=== PATIENT | male | born 1950 | race Caucasian/White ===

== ENCOUNTER 2018-04-18 12:11 | Inpatient (IN) | payer BC, MEDICARE ==
[~2018-04-18] VITALS: Ht 177.8 cm; Wt 112.0 kg
--- NOTE | ~2018-04-18 | PROC ---
[address] [address] PROCEDURE REPORT Name: STANTON GUERRA Room: [address] IN ..#: [id number] Admission: 04/18/18 Attend Phys: Jennifer Duffy MD Discharge: 04/20/18 Date of : 52 Report #: [id number] THIS REPORT FOR: //name// For GI report, please see the Provation report in Perceptive 7 content. By: [id number] Records Staff JOHANNY /STARR
[2018-04-18 12:21] VITALS: BP 129/42
[2018-04-18] MEDS ORDERED: ACTOS 45 MG45 M1 PO (12:28)
[2018-04-18] MEDS ORDERED: METFORMIN HCL500 MG PO (12:28)
[2018-04-18] MEDS ORDERED: LISINOPRIL20 MG PO (12:28)
[2018-04-18 12:58] LABS: ABSOLUTE BASOPHILS 0.1 thou/uL (0.0-0.2); ABSOLUTE EOSINOPHILS 0.2 thou/uL (0.0-0.7); ABSOLUTE LYMPHOCYTES 4.9 thou/uL (0.8-5.3); ABSOLUTE MONOCYTES 1.5 thou/uL (0.0-1.2); ABSOLUTE NEUTROPHILS 12.9 thou/uL (1.6-8.1); BASOPHILS 0.7 %; EOSINOPHILS 1.1 %; HEMATOCRIT 40.5 % (42.0-52.0); LYMPHOCYTES 24.8 %; MCH 29.5 pg (26.0-34.0); MCHC 32.2 g/dL (28.0-37.0); MCV 91.5 fL (80.0-100.0); MONOCYTES 7.7 %; MPV 9.3 fl. (7.2-11.1); NUCLEATED RBCS 0 /100WBC; PLATELET COUNT* 274 thou/uL (150-400); POLYS 65.7 %; RBC 4.42 mil/uL (4.50-6.00); RDW-CV 14.1 % (10.5-14.5); WBC 19.6 thou/uL (4.0-11.0)
[2018-04-18 13:04] LABS: ANION GAP 11 mmol/L (7-16); BUN 36 mg/dL (7-18); CALCIUM 9.5 mg/dL (8.5-10.1); CHLORIDE 103 mmol/L (98-107); CO2 28 mmol/L (21-32); CREATININE 1.1 mg/dL (0.6-1.3); GLUCOSE 202 mg/dL (70-99); POTASSIUM 4.2 mmol/L (3.5-5.1); PROTIME 10.1 Seconds (9.20-11.50); SODIUM 142 mmol/L (136-145)
[2018-04-18 13:15] LABS: ALBUMIN 3.4 g/dL (3.4-5.0); ALKALINE PHOSPHATASE 44 U/L (46-116); LIPASE 206 U/L (73-393); NT-PRO BRAIN NAT PEPTIDE 56 pg/mL (<300); SGOT 25 U/L (15-37); SGPT 28 U/L (30-65); TOTAL BILIRUBIN 0.8 mg/dL (<0.1-1.0); TOTAL PROTEIN 6.9 g/dL (6.4-8.2); TROPONIN-I LEVEL <0.06 ng/mL (<0.06)
--- NOTE | 2018-04-18 14:50 | EKG ---
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 : 1950 Requested By: Alex Rojas Order Number: [id number] MD: Jose Fernandez Measurements Intervals [place] Rate: 92 P: 58 AK: 160 QRS: 84 QRSD: 84 T: 43 QT: 339 QTc: 420 Interpretive Statements Sinus rhythm Borderline right axis deviation Low voltage, precordial leads Nonspecific T abnormalities, anterior leads No previous ECG available for comparison Electronically Signed On 04-18-2018 14:50:04 CDT by Jose Fernandez [email or web address] <ELECTRONICALLY SIGNED> By: Jose Fernandez MD, [facility] 04/18/18 1450 1321 1321 Jose Fernandez MD, [facility] /EPI
[2018-04-18 15:57] LABS: HEMATOCRIT 38.3 % (42.0-52.0); HEMOGLOBIN 12.6 gm/dL (14.0-18.0); MCH 29.8 pg (26.0-34.0); MCHC 32.8 g/dL (28.0-37.0); MCV 90.8 fL (80.0-100.0); MPV 8.6 fl. (7.2-11.1); RBC 4.22 mil/uL (4.50-6.00); RDW-CV 14.4 % (10.5-14.5); WBC 17.6 thou/uL (4.0-11.0)
[2018-04-18 17:02] VITALS: BP 130/64
[2018-04-18 17:03] VITALS: BP 138/68
[2018-04-18] MEDS ORDERED: VITAMIN D2000 UNIT PO (17:22)
[2018-04-18] MEDS ORDERED: NEPHROCAPS SOFT1 CAP PO (17:22)
[2018-04-18] MEDS ORDERED: LUTEIN20 MG PO (17:23)
[2018-04-18] MEDS ORDERED: XALATAN2.5 ML OPHTHALMIC (17:24)
[2018-04-18 19:30] LABS: HEMOGLOBIN 12.1 gm/dL (14.0-18.0)
[2018-04-18 20:00] VITALS: BP 128/68
[2018-04-19] VITALS: BP 123/62
[2018-04-19 04:00] VITALS: BP 123/66
[2018-04-19 04:40] LABS: HEMATOCRIT 31.7 % (42.0-52.0); HEMOGLOBIN 10.5 gm/dL (14.0-18.0); MCH 30.3 pg (26.0-34.0); MCHC 33.3 g/dL (28.0-37.0); MPV 9.6 fl. (7.2-11.1); RBC 3.48 mil/uL (4.50-6.00); RDW-CV 14.3 % (10.5-14.5); WBC 13.1 thou/uL (4.0-11.0)
[2018-04-19 05:01] LABS: CALCIUM 9.4 mg/dL (8.5-10.1); MAGNESIUM 1.5 mg/dL (1.8-2.4); POTASSIUM 4.2 mmol/L (3.5-5.1); TOTAL BILIRUBIN 0.7 mg/dL (<0.1-1.0); TOTAL PROTEIN 5.5 g/dL (6.4-8.2)
--- NOTE | 2018-04-19 05:26 | NUR ---
ASSUMED CARE OF PATIENT AT [address]-SR ON THE MONITOR O2 SAT MAINTAINED ON RA CONTINUES TO BE UP ADLIB THE ROUTINE REGIMEN CONTINUES TO BE EFFECTIVE FOR SX MANAGEMENT PATIENT CONTINUE TO PROGRESS TOWARDS GOALS AT MIDNIGHT NPO DUE ORDERED HS SSI HELD DUE TO NPO STATUS FLUIDS CONTINUE TO INFUSE WITHOUT S/SX OF ADVERSE EFFECTS NOTED SAFETY INTERVENTIONS CONTINUES BED LOWERED WHEELS LOCKED CALL LIGHT IN REACH SIDE RAILS UP REPORT TO BE GIVEN TO ONCOMING RN
--- NOTE | 2018-04-19 08:38 | NUR ---
PT SITTING UP IN CHAIR IN ROOM, APPEARS ALERT O X 4, DENIES CHEST PAIN, SOB, PAIN OR DISCOMORT. PT HAS BEEM MPO SINCE MIDNIGHT. DENIES ANY EMESIS,OR SPITTING UP BLOOD, SR ON MONITOR. PT INDICATED HE DRINKS NEAR A 1/2 BOTTLE OF WHISKEY A DAY. DR AUGUST CALLED, PLAN ON EGD THIS AM
[2018-04-19 08:41] VITALS: BP 123/66
[2018-04-19 12:00] VITALS: BP 128/59
[2018-04-19 16:00] VITALS: BP 108/61
[2018-04-19 18:26] LABS: HEMATOCRIT 31.3 % (42.0-52.0); HEMOGLOBIN 10.5 gm/dL (14.0-18.0)
[2018-04-19 18:35] LABS: POTASSIUM 3.5 mmol/L (3.5-5.1)
--- NOTE | 2018-04-19 19:30 | NUR ---
Called answering sercive for DR Landon to report 1800 H&H. lm request call back
[2018-04-19 19:38] VITALS: BP 109/42
[2018-04-20] VITALS (9 sets, daily range): BP systolic 106–124; BP diastolic 35–69
--- NOTE | 2018-04-20 05:04 | NUR ---
PT AAOX4 RESP REG AND UNLABORED SKIN W/D NO ACUTE DISTRESS NOTED. PT HAS WALKED IN KITCHEN NUMEROUS TIMES THIS SHIFT AND TOLERATED WELL. PT DENIES PAIN OR COUGHING UP BLOOD. PT STATES HE IS HOPING TO BE DCD TODAY. TELEMETRY PACK INTACT WITH [employer] SET. VSS AND NO ACUTE CHANGES DURING SHIFT WILL CONTINUE TO MONITOR
[2018-04-20 05:10] LABS: ABSOLUTE BASOPHILS 0.1 thou/uL (0.0-0.2); ABSOLUTE EOSINOPHILS 0.3 thou/uL (0.0-0.7); ABSOLUTE LYMPHOCYTES 2.7 thou/uL (0.8-5.3); ABSOLUTE NEUTROPHILS 6.4 thou/uL (1.6-8.1); BASOPHILS 0.7 %; HEMATOCRIT 28.5 % (42.0-52.0); HEMOGLOBIN 9.6 gm/dL (14.0-18.0); LYMPHOCYTES 25.5 %; MCH 30.7 pg (26.0-34.0); MCHC 33.6 g/dL (28.0-37.0); MCV 91.4 fL (80.0-100.0); MONOCYTES 9.3 %; MPV 8.7 fl. (7.2-11.1); NUCLEATED RBCS 0 /100WBC; PLATELET COUNT* 201 thou/uL (150-400); POLYS 61.5 %; RBC 3.12 mil/uL (4.50-6.00); RDW-CV 14.3 % (10.5-14.5); WBC 10.5 thou/uL (4.0-11.0)
[2018-04-20 05:24] LABS: CALCIUM 8.5 mg/dL (8.5-10.1); CREATININE 0.8 mg/dL (0.6-1.3); POTASSIUM 3.6 mmol/L (3.5-5.1)
--- NOTE | 2018-04-20 08:05 | NUR ---
PT SITTING UP IN CHAIR IN ROOM, APPEARS ALERT O X4,. DENIES CHEST PAIN, SOB, PAIN OR DISCOMFORT, REPORTS STOOLX X 2, LAST NIGHT, STATES FORMED, STATES APPEARRED DARK, STATES THEY..... WERE ..........NOT ,..BLACK OR TARRY,,,,,,,,,,,
--- NOTE | 2018-04-20 11:35 | NUR ---
DR AUGUST CALLED , UPDATED ON DR SAUNDERS NOTES. DR AUGUST STATES OKAY TO ADVANCE DIET TO REGULAR DIET FOR LUNCH. MAY NOT DISCHARGE. DR AUGUST STATES WOULD SEE PT THIS AFTERNOON
[2018-04-20] MEDS ORDERED: PROTONIX40 M1 PO (13:03)
--- NOTE | 2018-04-23 14:08 | PATH ---
[address] [address] PATHOLOGY RPT PROCEDURE Name: STANTON GUERRA Room: [address] IN ..#: [id number] Admission: 04/18/18 Date of : 52 Discharge: 04/20/18 Report #: [id number] Path Case #: [id number] [facility] Accession Number: [id number] . 01 Material submitted: . ANTRAL BIOPSY FOR H. PYLORI - FOR ULCERS . 01 Clinical history: . Gastric ulcer . 02 Diagnosis: Antral biopsy: - Mild non-specific chronic antral gastritis, negative for Helicobacter pylori organisms and dysplasia. (MICHAEL/db; 04/23/18) . Special stain: H. pylori immuno LBQ/04/23/2018 . 02 Electronically signed: . Pascual Angulo MD, Pathologist NPI- [id number] . 01 Gross description: . The specimen is received in formalin, labeled "AleksandrkamranMikaela, antral biopsy for H. pylori", is an irregular fragment of nugent soft tissue measuring 0.7 x 0.2 x 0.1 cm, entirely submitted in A1. ([facility]; 04/22/2018) SHS/SHS . 02 Pathologist provided ICD-10: K29.50 . 02 CPT . 027585, [id number] Performed at: [address], [place] [id number] MD Isaac Harmon MD Phone: [phone] Performed at: 02 [facility] [address], [place], [place] [id number] MD Pascual Angulo MD Phone: [phone]
--- NOTE | 2018-04-26 07:55 | CON ---
[address] [address] CONSULTATION Name: STANTON GUERRA Room: [address]#: [id number] Admission: 04/18/18 Attend Phys: Jennifer Duffy MD Discharge: 04/20/18 Date of : 52 Report #: [id number] THIS REPORT FOR: //name// CC: [facility] physician/PCP Jennifer Duffy MD DATE OF SERVICE: 04/19/2018 REFERRING PHYSICIAN: Jennifer Duffy MD REASON FOR CONSULTATION: Overt hematemesis. IMPRESSION: 1. Overt hematemesis of uncertain etiology. 2. History of nonsteroidal use. 3. Chronic alcohol abuse without evidence to suggest portal hypertension. 4. Acute anemia secondary to #1. RECOMMENDATIONS: We will have the patient proceed with colonoscopy today and make further recommendations thereafter. I discussed with the patient . 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 He thought maybe is related to his blood sugar being low, but then he started having bleeding. He was concerned then. He does take chronic Prilosec for reflux in the past, but is not taking anything at this time. He does take some ibuprofen on a regular basis and does drink alcohol on a daily basis as well. He has also had some black stools. He is admitted to the hospital for further evaluation and treatment. ALLERGIES: None. MEDICATIONS: Nonsteroidal medications, pioglitazone, and lisinopril. PAST MEDICAL AND SURGICAL HISTORY: Hypertension, diabetes, macular degeneration. He has had previous from previous injury, umbilical hernia repair, and GI bleeding in the past as well. SOCIAL HISTORY: The patient denies smoking. Drinks on at least daily basis. FAMILY HISTORY: [place] [address] CONSULTATION Name: STANTON GUERRA Room: [address]#: [id number] Admission: 04/18/18 Attend Phys: Jennifer Duffy MD Discharge: 04/20/18 Date of : 52 Report #: [id number] PHYSICAL EXAMINATION: GENERAL: A pleasant 67-year-old gentleman who is awake and alert. CARDIOPULMONARY: Revealed a regular rate and rhythm. LUNGS: Clear. ABDOMEN: Soft and nontender. No rebound or guarding. LABORATORY DATA: From admission reveal white count of , hemoglobin 13, platelet count 274,000. His MCV is 91.5 and RDW is 14.1. Sodium 142, potassium 4.2, chloride 103, bicarb is 28, BUN is 36, creatinine 1.1. Total bilirubin 0.8, alkaline phosphatase is 44. AST is 25, ALT 28, albumin 3.4. Lipase 206. Chest x-ray was negative. DISCUSSION: At the present time, the patient has problem with bleeding nonsteroidals, and he has not been taking any nonsteroidals. We will proceed with upper endoscopy today and make further recommendations. <ELECTRONICALLY SIGNED> By: Ignacio Oswald DO 04/26/18 0755 0528 [id number] Oswald DO /nt
== END 2018-04-20 16:30 | disposition home or self-care (01) | DRG 378 ==
LOC: M.ERS 12:11 → M.TBA-ER 14:04 → M.2W 15:04
PROVIDERS: Emergency Medicine; Internal Medicine Gastroenterology; ADMIT Internal Medicine
PROC: 0DB68ZX Excision of Stomach, Via Natural or Artificial Opening Endoscopic, Diagnostic (ICD-10-PCS; principal; 2018-04-19)
DX: K25.4 Chronic or unspecified gastric ulcer with hemorrhage (principal); D62 Acute posthemorrhagic anemia; G47.33 Obstructive sleep apnea (adult) (pediatric); E11.9 Type 2 diabetes mellitus without complications; I10 Essential (primary) hypertension; H35.30 Unspecified macular degeneration; F10.10 Alcohol abuse, uncomplicated; Y90.9 Presence of alcohol in blood, level not specified; Z88.6 Allergy status to analgesic agent; Z79.84 Long term (current) use of oral hypoglycemic drugs; Z79.899 Other long term (current) drug therapy; Z91.048 Other nonmedicinal substance allergy status